=== PATIENT | female | born 1965 | race Caucasian/White ===

== ENCOUNTER 2018-01-12 22:39 | Inpatient (IN) | payer OTHER ==
[~2018-01-12] VITALS: Ht 160 cm; Wt 86.0 kg
[2018-01-12] MEDS ORDERED: ASPIRIN 81 MG TABLET CHEW ONE (23:26)
[2018-01-12 23:30] LABS: BASOPHILS # (AUTO) 0.06 x10^3/uL (0-0.1); BASOPHILS % (AUTO) 1 % (0-1); EOSINOPHILS # (AUTO) 0.13 x10^3/uL (0-0.4); EOSINOPHILS % (AUTO) 2 % (1-7); LYMPHOCYTES # (AUTO) 2.29 x10^3/uL (1-3.4); LYMPHOCYTES % (AUTO) 27 % (22-44); MD NO; MEAN CORPUSCULAR HEMOGLOBIN 29.9 pg (27.0-34.8); MEAN CORPUSCULAR HGB CONC 33.9 g/dL (32.4-35.8); MEAN CORPUSCULAR VOLUME 88.2 fL (80-100); MEAN PLATELET VOLUME 9.3 fL (7.4-10.4); MONOCYTES # (AUTO) 0.57 x10^3/uL (0.2-0.8); MONOCYTES % (AUTO) 7 % (2-9); NEUTROPHILS # (AUTO) 5.34 x10^3/uL (1.8-6.8); NEUTROPHILS % (AUTO) 64 % (42-75); PLATELET COUNT 198 x10^3/uL (130-400); RED BLOOD COUNT 4.37 x10^6/uL (3.82-5.3); RED CELL DISTRIBUTION WIDTH 14.3 % (9.6-15.2)
[2018-01-12] MEDS ORDERED: ASPIRIN 81 MG TABLET CHEW PO ONE (23:30)
[2018-01-12] MEDS ORDERED: SODIUM CHLORIDE FLUSH 10ML SYR IVF ONE (23:30)
[2018-01-12 23:42] LABS: D-DIMER 1.14 ug/mlFEU (0.00-0.52); INTERNATIONAL NORMALIZED RATIO 0.96 (0.93-1.1)
[2018-01-12 23:43] LABS: ALANINE AMINOTRANSFERASE 109 U/L (12-78); ALBUMIN 3.5 g/dL (3.4-5.0); ANION GAP 7 mmol/L (5-15); CALCIUM 8.8 mg/dL (8.5-10.1); CHLORIDE 109 mmol/L (98-107); CREATININE 0.94 mg/dL (0.55-1.02)
[2018-01-12 23:48] LABS: ALKALINE PHOSPHATASE 96 U/L (45-117); BILIRUBIN,TOTAL 0.3 mg/dL (0.2-1.0); TOTAL PROTEIN 6.6 g/dL (6.4-8.2); TROPONIN I 0.077 ng/mL (0.000-0.045)
[2018-01-13] VITALS (7 sets, daily range): BP systolic 103–139; BP diastolic 62–95
[2018-01-13] MEDS ORDERED: FUROSEMIDE 20 MG/2 ML IV ONE (01:00)
[2018-01-13] MEDS ORDERED: NITROGLYCERIN OINT 2%, 1GM TP ONE ×2 (01:32→02:00)
[2018-01-13] MEDS ORDERED: FUROSEMIDE 20 MG/2 ML ONE (01:32)
[2018-01-13] MEDS ORDERED: SODIUM CHLORIDE 0.9% 1,000 ML IV SCH (03:05)
[2018-01-13] MEDS ORDERED: hydrALAzine 20 MG/ML, 1ML IVPush PRN (03:30)
[2018-01-13] MEDS ORDERED: POLYETHYLENE GLYCOL 17 GM PACKET PO PRN (03:30)
[2018-01-13] MEDS ORDERED: ONDANSETRON 2MG/ML, 2ML IVPush PRN (03:30)
[2018-01-13] MEDS: ACETAMINOPHEN 325 MG TABLET PO PRN ×2 (05:00→08:53)
[2018-01-13] MEDS: HEPARIN 5,000 UNITS/ML, 1ML SQ SCH ×2 (05:01→15:20)
[2018-01-13 05:36] LABS: CHOL/HDL RATIO 2.5; CHOLESTEROL, TOTAL 133 mg/dL (140-239); HDL CHOL % 40 % (28-40); HDL CHOLESTEROL (DIRECT) 53 mg/dL (40-60); LDL CHOLESTEROL,CALCULATED 63 mg/dL (54-169); LDL/HDL RATIO 1.2 (0.5-3.0); TRIGLYCERIDES 85 mg/dL (50-200); VLDL CHOLESTEROL 17 mg/dL (0-25)
[2018-01-13] MEDS ORDERED: OMNIPAQUE 350 MG/ML, 100ML BOTTLE ONE (05:37)
[2018-01-13] MEDS: POTASSIUM CHLORIDE 20 MEQ PACKET PO SCH (08:36)
[2018-01-13] MEDS: FUROSEMIDE 40 MG/4 ML IV SCH (08:37)
[2018-01-13] MEDS ORDERED: LEVO88TA4 PO (11:14)
[2018-01-13] MEDS ORDERED: VENL37.58 PO (11:14)
[2018-01-13 11:26] LABS: TROPONIN I 0.055 ng/mL (0.000-0.045)
[2018-01-13 11:58] LABS: ANION GAP 8 mmol/L (5-15); CHLORIDE 105 mmol/L (98-107)
[2018-01-13 11:59] LABS: CREATININE 0.95 mg/dL (0.55-1.02)
[2018-01-13] MEDS ORDERED: NITROGLYCERIN 0.4 MG BOTTLE (25 TABS) SL PRN (15:30)
[2018-01-13] MEDS ORDERED: HYDROcodone/APAP 5/325 TABLET PO PRN (17:00)
[2018-01-13] MEDS: VENLAFAXINE XR 37.5MG CAP.ER.24H PO SCH (17:18)
[2018-01-13] MEDS: CARVEDILOL 3.125 MG TABLET PO SCH (17:18)
[2018-01-14 03:10] VITALS: BP 112/80
[2018-01-14] MEDS: CARVEDILOL 3.125 MG TABLET PO SCH ×2 (06:27→22:09)
[2018-01-14] MEDS: LEVOTHYROXINE 88 MCG TABLET PO SCH (06:28)
[2018-01-14 06:29] VITALS: BP 105/79
[2018-01-14] MEDS: POTASSIUM CHLORIDE 20 MEQ PACKET PO SCH (08:34)
[2018-01-14] MEDS: LOSARTAN 25MG TABLET PO SCH (08:34)
[2018-01-14] MEDS: FUROSEMIDE 40 MG/4 ML IV SCH (08:34)
[2018-01-14 08:38] VITALS: BP 102/71
[2018-01-14] MEDS ORDERED: MIDAZOLAM 1 MG/ML, 5ML ONE (15:26)
[2018-01-14] MEDS ORDERED: VERAPAMIL 2.5 MG/ML, 2ML ONE (15:26)
[2018-01-14] MEDS ORDERED: NITROGLYCERIN 5 MG/ML, 10ML ONE (15:26)
[2018-01-14] MEDS ORDERED: FENTANYL PF 100 MCG/2ML ONE (15:26)
[2018-01-14] MEDS ORDERED: BIVALIRUDIN 250 MG ONE (15:26)
[2018-01-14] MEDS ORDERED: HEPARIN 1,000 UNITS/ML, 10ML ONE (15:26)
[2018-01-14 16:39] VITALS: BP 91/61
[2018-01-14 20:30] VITALS: BP 91/63
[2018-01-14] MEDS: VENLAFAXINE XR 37.5MG CAP.ER.24H PO SCH (22:12)
[2018-01-15 02:30] VITALS: BP 92/71
[2018-01-15] MEDS: LEVOTHYROXINE 88 MCG TABLET PO SCH (06:29)
[2018-01-15 06:30] VITALS: BP 101/75
[2018-01-15 07:15] VITALS: BP 122/80
[2018-01-15] MEDS: LOSARTAN 25MG TABLET PO SCH (09:00)
[2018-01-15] MEDS ORDERED: POTA20TA14 PO (09:20)
[2018-01-15] MEDS ORDERED: LOSA25TA2 PO (09:20)
[2018-01-15] MEDS ORDERED: FURO-93 PO (09:20)
[2018-01-15] MEDS ORDERED: CARV6.2512 PO (09:20)
[2018-01-15] MEDS ORDERED: ATOR10TA9 PO (09:27)
[2018-01-15] MEDS: POTASSIUM CHLORIDE 20 MEQ PACKET PO SCH (09:33)
[2018-01-15] MEDS: FUROSEMIDE 40 MG/4 ML IV SCH (09:34)
[2018-01-15] MEDS: ACETAMINOPHEN 325 MG TABLET PO PRN (10:32)
[2018-01-15 11:10] VITALS: BP 97/67
[2018-01-15] MEDS: CARVEDILOL 3.125 MG TABLET PO SCH (11:10)
[2018-01-15] MEDS ORDERED: PNEUMOCOCCAL 23 VACCINE IM-VACC ONE (15:30)
== END 2018-01-15 15:34 | disposition home or self-care (01) | DRG 865 ==
LOC: ED 23:59 → EDIP 01-13 01:17 → 5SO 01-13 04:19 → DCLOUNGE 01-15 15:13
PROVIDERS: ADMIT Hospitalist; ATTEND Family Medicine
PROC: 4A023N7 Measurement of Cardiac Sampling and Pressure, Left Heart, Percutaneous Approach (ICD-10-PCS; principal; 2018-01-14)
PROC: B2111ZZ Fluoroscopy of Multiple Coronary Arteries using Low Osmolar Contrast (ICD-10-PCS; 2018-01-14)
PROC: B2151ZZ Fluoroscopy of Left Heart using Low Osmolar Contrast (ICD-10-PCS; 2018-01-14)
DX: B33.24 Viral cardiomyopathy (principal); I50.21 Acute systolic (congestive) heart failure; I42.0 Dilated cardiomyopathy; I95.9 Hypotension, unspecified; I08.0 Rheumatic disorders of both mitral and aortic valves; E03.9 Hypothyroidism, unspecified; E66.9 Obesity, unspecified; F32.9 Major depressive disorder, single episode, unspecified; Z68.34 Body mass index [BMI] 34.0-34.9, adult; Z79.82 Long term (current) use of aspirin; Z87.891 Personal history of nicotine dependence; Z88.6 Allergy status to analgesic agent; Z23 Encounter for immunization
CPT/HCPCS: 36415; 71045; 71275; 80048; 80053; 80061; 83735; 83880; 84100; 84484; 85025; 85379; 85610; 85730; 90732; 93005; 93306; 93458; 96374; 99156; 99157; C1760; C1894; J0583; J1644; J1940; J2250; J3010; Q9967; J7030